=== PATIENT | male | born 1995 | race Caucasian/White ===

== ENCOUNTER 2019-09-24 11:13 | Emergency (ER) | payer OTHER, SELFPAY ==
--- NOTE | 2019-09-24 11:18 | ED.GENADULT ---
HPI - General Adult General Chief complaint: Urogenital-Male Stated complaint: Anus Abcess and STD Test Time Seen by Provider: 09/24/19 11:33 Source: patient Mode of arrival: ambulatory Limitations: no limitations History of Present Illness HPI narrative: 24-year-old male patient presents to the [facility] with complaints possible STDs. Patient states he has been having itchiness, slight pain to the anal area for the past 1 to 2 weeks. Patient states he had something similar to this which she thought was hemorrhoids and had a checked out at the [facility] and was told he had gonorrhea. Patient was given antibiotics and states that it cleared up. Patient states that he is with a new partner and that he is involved with men. Patient states that he was not using protection and he fears that he may have gotten the gonorrhea again because it has similar symptoms to when he had this outbreak in April. Patient states that he was tested for syphilis and HIV back in August which was negative at that time. Patient states that he has been noticing changes in his bowel movements more of a non-formed bowel movement and does have a little bit of blood when he wipes. Patient states he has noticed a little bit of pus as well. Denies any pain with urination, fevers, nausea vomiting or diarrhea. Patient states he has had a little abdominal pain at times. Related Data Home Medications Medication Instructions Recorded Confirmed cetirizine [Zyrtec] 10 mg PO DAILY 09/24/19 09/24/19 Allergies Allergy/AdvReac Type Severity Reaction Status Date / Time No Known Allergies Allergy Verified 09/24/19 11:36 Review of Systems Review of Systems: Narrative: CONSTITUTIONAL: Denies fever, chills, or sweats. EYES: Denies visual changes, redness, or discharge. ENT: Denies rhinorrhea, congestion, sore throat, or otalgia. CARDIOVASCULAR: Denies chest pain, palpitations, or edema. RESPIRATORY: Denies cough or dyspnea. GASTROINTESTINAL: Denies abdominal pain, nausea, vomiting, or diarrhea. GENITOURINARY: Denies dysuria or hematuria. Positive anal itching with slight pain for the past 1 to 2 weeks. SKIN: Denies rash or itching. MUSCULOSKELETAL: Denies back pain, joint pain, or myalgia. NEUROLOGIC: Denies headache, numbness, or weakness. PSYCHIATRIC: Denies anxiety or depression. PMFSH Comments At the time of my signature I agree with nursing past medical history, surgical, social, and family history. There is no relevant family history pertinent to the presenting complaint. Exam Narrative: Exam Narrative: GENERAL: Well-appearing, well-nourished, and in no acute distress. HEAD: Normocephalic, atraumatic. EYES: PERRLA and EOMI. ENT: Nares clear, no rhinorrhea or epistaxis. Mucous membranes moist. NECK: Supple. No lymphadenopathy CHEST: Clear to auscultation. No respiratory distress. HEART: Regular rate and rhythm. No murmur heard. Normal peripheral pulses. ABDOMEN: Soft, nontender, nondistended, normal active bowel sounds. : Deferred EXTREMITIES: Normal range of motion. No edema. SKIN: Warm, dry, no rash. NEURO: No focal deficits. Alert and oriented x3. Course Reevaluation(s) Reevaluation #1: Patient does agree to testing in treatment of STDs at this time. Date: 09/24/19 Time: 12:25 Vital Signs Vital signs: Vital Signs Temperature 37.1 C 09/24/19 11:24 Pulse Rate 93 09/24/19 11:24 Respiratory Rate 18 09/24/19 11:24 Blood Pressure 112/72 09/24/19 11:24 Pulse Oximetry 100 09/24/19 11:24 Temperature 37.1 C 09/24/19 11:24 Pulse Rate 93 09/24/19 11:24 Respiratory Rate 18 09/24/19 11:24 Blood Pressure 112/72 09/24/19 11:24 Pulse Oximetry 100 09/24/19 11:24 Vital signs reviewed. Medical Decision Making Differential Diagnosis Differential Diagnosis: Differential diagnosis: Gonorrhea, chlamydia, Trichomonas, bacterial vaginosis, herpes, HIV, yeast infection, urinary tract infection. Discussed with rudi
[2019-09-24 11:24] VITALS: BP 112/72; PULSE 93; RESP 18; TEMP 37.1; O2SAT 100
[2019-09-24] MEDS: AZITHROMYCIN 250 MG TABLET 1000 MG PO (12:20)
[2019-09-24] MEDS: cefTRIAXone 250 MG VIAL IM (12:21)
[2019-09-24] MEDS: LIDOCAINE HCL 1% LOCAL INJ 20 ML VIAL IM (12:21)
--- NOTE | 2019-09-24 13:40 | PC.NURSE ---
noted pt visit was delayed because pt waited to hear from health insurance company before agreeing to receive tx/meds.
== END 2019-09-24 12:46 | disposition home or self-care (01) ==
PROVIDERS: Emergency Provider Nurse Practitioner Family
DX: L29.0 Pruritus ani (principal); Z20.2 Contact with and (suspected) exposure to infections with a predominantly sexual mode of transmission
CPT/HCPCS: 87491; 87591; 87661; 96372; 99213; A9270; G0463; J0696